=== PATIENT | female | born 1975 | race Caucasian/White ===

== ENCOUNTER 2017-10-18 12:41 | Emergency (ER) | payer SELFPAY ==
[2017-10-18 13:36] LABS: #Eosinphils 0.1 thou/uL (0.0-0.7); #Lymphocytes 1.6 thou/uL (1.20-3.40); #Monocytes 0.7 thou/uL (0.11-0.59); #Neutrophils 6.6 thou/uL (1.40-6.50); %Basophils 0.4 % (0.0-1.0); %Eosinophils 0.9 % (0.0-10.0); %Lymphocytes 17.2 % (21.0-51.0); %Neutrophils 73.6 % (42.0-75.0); Hemoglobin 13.9 g/dL (12.0-16.0); Mean Corpuscular HGB CONC 32.5 g/dL (32.0-36.0); Mean Corpuscular Hemoglobin 30.1 pg (27.0-31.0); Mean Corpuscular Volume 92.6 fl (81.0-99.0); Mean Platelet Volume 7.4 fL (7.4-10.4); Platelet Count 246 thou/uL (130-400); RBC Distribution Width 11.2 % (11.5-14.5)
[2017-10-18 13:58] LABS: ALT (SGPT) 14 U/L (8-55); AST (SGOT) 24 U/L (5-34); Albumin 4.6 g/dL (3.5-5.0); Alkaline Phosphatase 48 U/L (40-150); Anion Gap 12 mmol/L (10-20); BUN (Urea Nitrogen) 32 mg/dL (7.0-18.7); Bilirubin, Total 0.5 mg/dL (0.2-1.2); Calc. Creatinine Clearance 0 mL/min (70-130); Calcium 9.3 mg/dL (7.8-10.44); Carbon Dioxide 35 mmol/L (22-29); Chloride 99 mmol/L (98-107); Estimated GFR-MDRD 37; Globulin 3.3 g/dL (2.4-3.5); Glucose 93 mg/dL (70-105); Lipase 107 U/L (8-78); Potassium 3.5 mmol/L (3.5-5.1); Protein, Total 7.9 g/dL (6.0-8.3); Sodium 142 mmol/L (136-145)
[2017-10-18 14:36] LABS: Bilirubin Negative (Negative); Blood, Urine Negative (Negative); Clarity CLEAR (Clear); Glucose, Urine (Dipstick) Negative (Negative); Leukocyte Negative (Negative); Nitrite Negative (Negative); Protein, Urine (Dipstick) Negative (Neg-Trace); Specific Gravity, Urine 1.011 (1.002-1.036); Urobilinogen 0.2 mg/dL (0.2-1.0)
[2017-10-18] MEDS ORDERED: Ondansetron HCl/PF 4 MG/2 ML Vial ONE (15:26)
--- NOTE | 2017-10-18 16:48 | ULT ---
ULTRASOUND ABDOMEN: 10/18/17 HISTORY: Right upper quadrant pain. FINDINGS: The liver and kidneys demonstrate numerous cysts consistent with polycystic disease. The spleen measu res 10.4 cm in length and is unremarkable. No gallstones, gallbladder wall thickening, or pericholecystic fluid is seen. The common duct measure s 4 mm in diameter. No hydronephrosis is seen. The pancreas is not visualized. No free fluid is seen. IMPRESSION: 1. Polycystic disease of the liver and kidneys. 2. No evidence of cholelithiasis. POS: [facility]
== END 2017-10-18 16:55 | disposition home or self-care (01) ==
LOC: ERS 12:41
DX: R10.13 Epigastric pain (principal); R11.2 Nausea with vomiting, unspecified; I10 Essential (primary) hypertension; Q61.3 Polycystic kidney, unspecified; F32.9 Major depressive disorder, single episode, unspecified
CPT/HCPCS: 36415; 76700; 80053; 81003; 83690; 85025; 96361; 96374; 96375; J2270; J2405